=== PATIENT | female | born 1955 | race Caucasian/White ===

== ENCOUNTER 2017-03-21 18:14 | Emergency (ER) | payer OTHER ==
--- NOTE | 2017-03-21 18:42 | CPEKG ---
Heart Rate: 69 RR Interval: 870 P-R Interval: 140 QRSD Interval: 94 QT Interval: 396 QTC Interval: 425 P Nichols: -24 QRS Nichols: -75 T Wave Nichols: 31 EKG Severity - ABNORMAL ECG - EKG Impression: SINUS RHYTHM EKG Impression: LEFT ANTERIOR FASCICULAR BLOCK Electronically Signed By: Hal Rios 21-Mar-2017 22:13:11
--- NOTE | 2017-03-21 18:56 | EDPHY ---
H & P Stated Complaint: intermittent cp/htn l arm pain over the last week HPI/ROS: CHIEF COMPLAINT: Hypertension, medication intolerance HISTORY OF PRESENT ILLNESS: Patient reports elevation of her blood pressure over the past 7-10 days. She reports being as high as 170 systolic. When this happened little over week ago, she said she was feeling well. She had some chest pain and was feeling generally uncomfortable time. She resumed a previous prescription for Bystolic. This had been stopped by her compensation consultant due to intolerance because of her statin medication. She is taking 2.5 mg twice a day for the past 6 and half days, her last dose was yesterday afternoon. While taking this he reports some chest pressure and worsening of her baseline dizziness. Since stopping the medication yesterday, the symptoms have nearly resolved. She did have some mild chest pain at 2:00 a.m. that immediately resolved. She has baseline dizziness and peripheral neuropathy it is unchanged. No shortness of breath. No fever or chills. No cough. No recent travel or surgery. No history of venous thrombolic event. Last cardiac stress test was last year which was reportedly normal. Her compensation consultant Dr. Galdino Rodriguez contacted her today to see if she is tolerating medication. She informed him of the weeks events and he recommended she present to the emergency department. 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 Uvula midline. Neck: Normal inspection, supple, non-tender Respiratory: Lungs are clear to auscultation. No wheezing, rhonchi or crackles. Cardiovascular: Regular rate and rhythm. No murmur. Pulses intact distally. Gastrointestinal: Abdomen is soft and nontender Back: non-tender, no bony abnormalities Neurological: GCS 15. A&O, nonfocal, normal gait. Strength symmetric in all limbs. No pronator drift or dysmetria. Skin: Warm and dry, no rash. No lesions of the palms of the hands of the nails. Extremities: Nontender, no pedal edema Psychiatric: Mood and affect normal DIFFERENTIAL DIAGNOSES: Including but not limited to hypertension, hypertensive urgency, hypertensive emergency, ACS, chest pain medication intolerance, medication reaction MDM: 6:55 p.m. Reports of high blood pressure over the past week. She is feeling much better today. She stop taking the Bystolic yesterday afternoon. She was referred by her compensation consultant for evaluation. No chest pain since 02:30 in the morning. Vital signs at time of arrival reveal mild hypertension but otherwise stable. She is resting comfortably in no acute distress. Laboratory studies and chest x -ray are pending at this time. 7:55 p.m. Patient's laboratory studies are all within normal limits. Chest x-ray is unremarkable. Vital signs have improved, blood pressure is currently 146/92. She is in no acute distress and has no chest pain at this time. She has been evaluated here in the emergency department by Dr. Louise. Dr. Louise recommends amlodipine 5 mg daily. She is to be given the 1st dose here. He also recommends that should she not tolerate this medication, she should be transitioned to irbesartan 150 mg daily. First dose has been ordered here. 8:33 p.m. I have re-evaluated the patient. She is resting comfortably with stable vital signs. Blood pressure is 150/88. She has no headache. No chest pain. She has received her amlodipine. We discussed discharge home with the same prescription at the recommendation of Dr. Louise. She and her are comfortable with this plan. The follow up with Dr. Louise or Dr. Rodriguez for ongoing management of the hypertension. She is to return to ER for any headache , change in vision, chest pain. She is comfortable with this plan and discharged home stable condition. EKG Interpretation: Dr. Rios Sinus rhythm with no acute ischemia. No previous EKG available for comparison SUPERVISION: Patient was evaluated in conjunction with the supervising physician. Please see their note for details. Cardiology consult by Dr. Louise Source: Patient, Family Exam Limitations: No limitations - Personal History Current Tetanus/Diphtheria Vaccine: Yes - Medical/Surgical History Hx Asthma: No Hx Chronic Respiratory Disease: No Hx Diabetes: No Hx Cardiac Disease: Yes Hx Renal Disease: No Hx Cirrhosis: No Hx Alcoholism: No Hx HIV/AIDS: No Hx Splenectomy or Spleen Trauma: No Other PMH: neuropathy/spinal cord inj/ - Social History Smoking Status: Never smoked Constitutional: Initial Vital Signs Temperature (C) 97.7 F 03/21/17 18:25 Heart Rate 66 03/21/17 18:25 Respiratory Rate 18 03/21/17 18:25 Blood Pressure 158/105 H 03/21/17 18:25 O2 Sat (%) 99 03/21/17 18:25 O2 Delivery Mode Room Air Allergies/Adverse Reactions: hydromorphone [From Dilaudid] Allergy (Verified 03/21/17 18:23) metoclopramide [From Reglan] Allergy (Verified 03/21/17 18:23) morphine Allergy (Verified 03/21/17 18:23) Home Medications: Medication Instructions Recorded Advair 100/50 (*) 03/21/17 Barbie Allergy 03/21/17 Atorvastatin Calcium 03/21/17 Bystolic 03/21/17 GABAPENTIN 03/21/17 HYDROCORTISONE 03/21/17 Rhinocort Allergy 03/21/17 Sudafed 12 Hour 120mg (*) 03/21/17 T3 03/21/17 amLODIPine BESYLATE [Norvasc 5 mg 5 mg PO DAILY #30 tab 03/21/17 (*)] Medical Decision Making - Diagnostics Imaging Results: Imaging Impressions Chest X-Ray 03/21/17 18:40 Impression: Negative. - Data Points Laboratory Results: Laboratory Results 03/21/17 19:05 03/21/17 19:05 03/21/17 03/21/17 03/21/17 19:05 19:05 19:05 WBC 8.14 10^3/uL 10^3/uL (3.80-9.50) RBC 4.53 10^6/uL 10^6/uL (4.18-5.33) Hgb 13.6 g/dL g/dL (12.6-16.3) Hct 40.5 % % (38.0-47.0) MCV 89.4 fL fL (81.5-99.8) MCH 30.0 pg pg (27.9-34.1) MCHC 33.6 g/dL g/dL (32.4-36.7) RDW 13.4 % % (11.5-15.2) Plt Count 344 10^3/uL 10^3/uL (150-400) MPV 9.9 fL fL (8.7-11.7) Neut % (Auto) 66.8 % % (39.3-74.2) Lymph % (Auto) 22.0 % % (15.0-45.0) [place] % (Auto) 6.9 % % (4.5-13.0) Eos % (Auto) 3.2 % % (0.6-7.6) Baso % (Auto) 0.7 % % (0.3-1.7) Nucleat RBC Rel Count 0.0 % % (0.0-0.2) Absolute Neuts (auto) 5.44 10^3/uL 10^3/uL (1.70-6.50) Absolute Lymphs (auto) 1.79 10^3/uL 10^3/uL (1.00-3.00) Absolute Monos (auto) 0.56 10^3/uL 10^3/uL (0.30-0.80) Absolute Eos (auto) 0.26 10^3/uL 10^3/uL (0.03-0.40) Absolute Basos (auto) 0.06 10^3/uL 10^3/uL (0.02-0.10) Absolute Nucleated RBC 0.00 10^3/uL 10^3/uL (0-0.01) Immature Gran % 0.4 % % (0.0-1.1) Immature Gran # 0.03 10^3/uL 10^3/uL (0.00-0.10) PT 13.4 SEC SEC (12.0-15.0) INR 1.03 (0.83-1.16) APTT 27.9 SEC SEC (23.0-38.0) Sodium 138 mEq/L mEq/L (134-144) Potassium 4.1 mEq/L mEq/L (3.5-5.2) Chloride 102 mEq/L mEq/L (97-110) Carbon Dioxide 24 mEq/l mEq/l (22-31) Anion Gap 12 mEq/L mEq/L (8-16) BUN 17 mg/dL mg/dL (7-23) Creatinine 0.8 mg/dL mg/dL (0.6-1.0) Estimated GFR > 60 Glucose 95 mg/dL mg/dL (70-100) Calcium 9.8 mg/dL mg/dL (8.5-10.4) Troponin I < 0.012 ng/mL ng/mL (0-0.034) NT-Pro-B Natriuret Pep 69 pg/mL pg/mL (0-125) Lipase 207.0 IU/L IU/L (23-300) Medications Given: Discontinued Medications Amlodipine Besylate (Norvasc) 5 mg PO EDNOW ONE Stop: 03/21/17 19:57 Last Admin: 03/21/17 20:30 Dose: 5 mg Departure - Departure Disposition: Home, Routine, Self-Care Clinical Impression: Hypertension Qualifiers: Hypertension type: essential hypertension Qualified Code(s): I10 - Essential ( primary) hypertension Condition: Good Instructions: DASH Eating Plan (ED), Hypertension (ED) Additional Instructions: Amlodipine as discussed. If you developed intolerance to the medication including constipation or lower extremity edema, contact her physician's regarding transitioning to new medication. Return here for any chest pain or shortness of breath Referrals: Bridger Louise MD [Medical Doctor] - As per Instructions Prescriptions: amLODIPine BESYLATE [Norvasc 5 mg (*)] 5 mg PO DAILY #30 tab
[2017-03-21 19:13] LABS: % IMMATURE GRANULYOCYTES 0.4 % (0.0-1.1); ABSOLUTE IMMATURE GRANULOCYTES 0.03 10^3/uL (0.00-0.10); ADD DIFF? NO; ADD MORPH? NO; ADD SCAN? NO; ATYPICAL LYMPHOCYTE FLAG 10 (0-99); FRAGMENT RBC FLAG 0 (0-99); HEMATOCRIT 40.5 % (38.0-47.0); HEMOGLOBIN 13.6 g/dL (12.6-16.3); LEFT SHIFT FLG 0 (0-99); LIPEMIA HEMOLYSIS FLAG 80 (0-99); MEAN CELL HEMOGLOBIN CONCENTR. 33.6 g/dL (32.4-36.7); MEAN CELL VOLUME 89.4 fL (81.5-99.8); MEAN PLATELET VOLUME 9.9 fL (8.7-11.7); PLATELET CLUMPS FLAG 0 (0-99); PLATELET COUNT 344 10^3/uL (150-400); RED BLOOD CELL COUNT 4.53 10^6/uL (4.18-5.33); RED CELL DISTRIBUTION WIDTH 13.4 % (11.5-15.2)
[2017-03-21 19:29] LABS: INR 1.03 (0.83-1.16); PROTIME(PATIENT) 13.4 SEC (12.0-15.0)
[2017-03-21 19:30] LABS: APTT 27.9 SEC (23.0-38.0)
[2017-03-21 19:35] LABS: ANION GAP 12 mEq/L (8-16); CALCIUM 9.8 mg/dL (8.5-10.4); CARBON DIOXIDE 24 mEq/l (22-31); CHLORIDE 102 mEq/L (97-110); CREATININE 0.8 mg/dL (0.6-1.0); GLOMERULAR FILTRATION RATE > 60; GLUCOSE 95 mg/dL (70-100); POTASSIUM 4.1 mEq/L (3.5-5.2); SODIUM 138 mEq/L (134-144)
[2017-03-21 19:36] VITALS: PULSE 68
[2017-03-21 19:46] LABS: TROPONIN I < 0.012 ng/mL (0-0.034)
[2017-03-21] MEDS ORDERED: amLODIPine BESYLATE 5 MG TAB PO ONE (19:56)
[2017-03-21 20:51] VITALS: BP 159/94; RESP 18; TEMP 97.9; O2SAT 96
== END 2017-03-21 20:51 | disposition home or self-care (01) ==
DX: I10 Essential (primary) hypertension (principal)

== ENCOUNTER 2017-05-14 18:08 | Emergency (ER) | payer OTHER ==
[2017-05-14 18:12] VITALS: RESP 16; TEMP 97.3
--- NOTE | 2017-05-14 18:26 | EDPHY ---
H & P Time Seen by Provider: 05/14/17 18:14 HPI/ROS: CHIEF COMPLAINT: Left great toenail avulsion HISTORY OF PRESENT ILLNESS: 61-year-old female presents via private vehicle complaining of accidental left great toenail avulsion which she stubbed her toenail this morning. No underlying osseous pain. PHYSICAL EXAM (Prior to examination, patient consented to physical exam, hands were washed and my usual and customary physical exam procedures followed) 1) GENERAL: Well-developed, well-nourished, alert and oriented. Appears to be in no acute distress. 2) HEAD: Normocephalic 3) HEENT: sclera anicteric 4) LUNGS: Breathing comfortably. 5) SKIN: left great toe, toenail avulsion attached proximally. The underlying nail bed has no laceration. 6) MUSCULOSKELETAL: the distal phalanx tender palpation with full sensation 7) NEUROLOGIC: Full sensation. Brisk capillary refill. Smoking Status: Never smoked Constitutional: Initial Vital Signs Temperature (C) 36.3 C 05/14/17 18:10 Heart Rate 81 05/14/17 18:10 Respiratory Rate 16 05/14/17 18:10 Blood Pressure 145/82 H 05/14/17 18:10 O2 Sat (%) 97 05/14/17 18:10 O2 Delivery Mode Room Air Allergies/Adverse Reactions: hydromorphone [From Dilaudid] Allergy (Verified 03/21/17 18:23) metoclopramide [From Reglan] Allergy (Verified 03/21/17 18:23) morphine Allergy (Verified 03/21/17 18:23) Home Medications: Medication Instructions Recorded Advair 100/50 (*) 03/21/17 Barbie Allergy 03/21/17 Atorvastatin Calcium 03/21/17 Bystolic 03/21/17 GABAPENTIN 03/21/17 HYDROCORTISONE 03/21/17 Rhinocort Allergy 03/21/17 Sudafed 12 Hour 120mg (*) 03/21/17 T3 03/21/17 amLODIPine BESYLATE [Norvasc 5 mg 5 mg PO DAILY #30 tab 03/21/17 (*)] MDM/Departure - MDM Imaging Results: Imaging Impressions Foot X-Ray 05/14/17 18:54 Impression: Negative left foot radiographs. Images reviewed myself Procedures: Procedure: Splint A postop shoe splint , wound dressing, was applied by ER geoscience laboratory technician. After application of the splint I returned and re-examined the patient. The splint was adequately immobilizing the joint and distal to the splint the patient's circulation and sensation were intact. Patient shows no signs of compartment syndrome. Was given orthopedic precautions. ED Course/Re-evaluation: Re-evaluation. Patient has no evidence of nail bed laceration. She partial nail avulsion. The proximal aspect is in place and will be left in place to assist with further healing. Recommend follow up with Podiatry. I have offered analgesia and she declined this. recommended elevation. - Depart Disposition: Home, Routine, Self-Care Clinical Impression: Nail avulsion, toe Qualifiers: Encounter type: initial encounter Qualified Code(s): S91.209A - Unspecified open wound of unspecified toe(s) with damage to nail, initial encounter Condition: Good Instructions: Nail Avulsion (ED) Additional Instructions: Return to the ER if you develop redness, swelling, discharge, warmth to the wound, red streaks going up your leg, or any other symptoms that concern you. Referrals: Ida Chen DPM [Doctor of Podiatric Medicine] - 1-2 days without fail
[2017-05-14 19:39] VITALS: BP 141/80; PULSE 72; O2SAT 94
== END 2017-05-14 19:35 | disposition home or self-care (01) ==
DX: S91.202A Unspecified open wound of left great toe with damage to nail, initial encounter (principal); W22.8XXA Striking against or struck by other objects, initial encounter